=== PATIENT | male | born 1965 | race Caucasian/White ===

== ENCOUNTER 2020-10-10 16:48 | Emergency (ER) | payer MEDICAID, OTHER ==
--- NOTE | 2020-10-10 17:06 | EDM.PDOC ---
<Bebeto Tran - Last Filed: 10/10/20 17:05> ED HPI GENERAL MEDICAL PROBLEM - General Chief Complaint: General Stated Complaint: Epigastric pain Time Seen by Provider: 10/10/20 18:10 - Related Data Allergies Allergy/AdvReac Type Severity Reaction Status Date / Time No Known Allergies Allergy Verified 08/08/17 09:38 Home Meds: Home Meds Lisinopril 40 mg PO DAILY 08/05/17 [History] Verapamil HCl [Calan Sr] 240 mg PO DAILY 08/05/17 [History] #1 Interpretation EKG Date: 10/10/20 Time: 15:59 Rhythm: NSR Hague: LAD-Left Hague Deviation P-Wave: Present QRS: Normal ST-T: Normal QT: Normal Comparison: NA - No Prior EKG Departure - Departure Disposition: Home, Self-Care 01 Clinical Impression: Excessive flatus Abdominal pain Qualifiers: Abdominal location: generalized Qualified Code(s): R10.84 - Generalized abdominal pain - Discharge Information Instructions: Abdominal Pain, Adult, Abdominal Bloating Referrals: aJyesh Bautista Sr, MD [Primary Care Provider] - Forms: ED Department Discharge Care Plan Goals: I recommend taking one of the [id number] anti-gas medications like Maalox, simethicone-based Gas-X, Mandie, or Di-Gel to help break up the excessive colonic flatus. This is likely contributing to your discomfort. Your labs today were unremarkable for any worrisome findings including your CBC, comprehensive metabolic profile looking at your electrolytes, liver function, and kidney function, your troponin I looking at heart function and your C- reactive protein looking at inflammatory markers. Your EKG was unremarkable for any significant abnormalities except for your previous heart attack. Your chest x-ray did show a significant amount of colonic gas but no intrathoracic abnormalities with normal heart contour and normal-appearing lungs. Your blood pressure has remained elevated throughout your stay and I do recommend revisiting whether or not to restart your medications with your primary doctor Dr. Bautista. Please arrange to follow-up with him early next week to discuss this. Should you have recurrence of symptoms, please return to the ED for reevaluation. <Ayo Ritter - Last Filed: 10/10/20 19:54> ED HPI GENERAL MEDICAL PROBLEM - General Source of Information: Reports: Patient History Limitations: Reports: No Limitations - History of Present Illness INITIAL COMMENTS - FREE TEXT/NARRATIVE: Jean is a 55-year-old male presenting to the ED for evaluation of acute onset of epigastric and periumbilical pain. The patient has a history significant for hypertension, coronary artery disease status post angioplasty with a single stent placed in 2016 after having a "silent LA" and irritable bowel disease. Patient was in his usual state of health when he had acute onset of his epigastric and abdominal pain. He was concerned because of his previous experience in 2017 that had similar symptoms and ended up being a silent LA. The patient had been on antihypertensives until March of this year when they were discontinued because he was not showing any significant difference between being on and off the medications. He has been working on his stress reduction which appears to have lowered his blood pressure, however, today's presenting with quite hypertensive numbers with a blood pressure of 167/102. The patient reports that his pressure at home was 171/115. He says he is normally running about 135/80. He currently is running 153/106. He did experience some chest pain today and mild shortness of breath. He does seem to be a little high on the stress and anxiety scale. He reports that after discussing being on medications with his primary doctor, Jayesh Bautista which consisted of lisinopril 40 mg daily and verapamil CD 240 mg daily he has been off these medications since March 2020. Patient reports he monitors his blood pressure least 2-3 times a week. Currently he feels like he has epigastric and periumbilical gas pain. He says normally he takes a Zofran and it helps it go away, however, did not this time. He has not really been able to pass much gas. Abdominal Pain Score (Numeric/FACES): 4 ED ROS GENERAL - Review of Systems Review Of Systems: See Below Constitutional: Reports: No Symptoms HEENT: Reports: No Symptoms Respiratory: Reports: No Symptoms Cardiovascular: Reports: Chest Pain, Blood Pressure Problem Endocrine: Reports: No Symptoms GI/Abdominal: Reports: Abdominal Pain (Epigastric and periumbilical), Diarrhea (Mild diarrhea earlier today), Nausea (Mild nausea). Denies: Vomiting : Reports: No Symptoms Musculoskeletal: Reports: No Symptoms Skin: Reports: No Symptoms Neurological: Reports: No Symptoms Psychiatric: Reports: No Symptoms Hematologic/Lymphatic: Reports: No Symptoms ED EXAM, GENERAL - Physical Exam Exam: See Below Exam Limited By: No Limitations General Appearance: Alert, Anxious, Mild Distress Eye Exam: Bilateral Eye: EOMI, PERRL Throat/Mouth: Normal Oropharynx, Normal Voice, No Airway Compromise Head: Atraumatic, Normocephalic Neck: Normal Inspection, Supple. No: Carotid Bruit Respiratory/Chest: No Respiratory Distress, Lungs Clear, Normal Breath Sounds Cardiovascular: Normal Peripheral Pulses, Regular Rate, Rhythm, No Edema, No JVD, Systolic Murmur (Grade 2/6 systolic murmur heard at the apex of the heart) Peripheral Pulses: 2+: Radial (L), Radial (R), Popliteal (L), Popliteal (R) GI/Abdominal: Normal Bowel Sounds, Soft, Non-Tender, No Distention, Other (Tympany to percussion throughout the distribution of the colon). No: Guarding, Rigid, Rebound Extremities: Normal Inspection, Normal Range of Motion Neurological: Alert, Oriented, Normal Cognition, No Motor/Sensory Deficits Psychiatric: Normal Affect, Normal Mood Skin Exam: Warm, Dry Lymphatic: No Adenopathy Course - Vital Signs Last Recorded V/S: Last Vital Signs Temp 36.8 C 10/10/20 17:05 Pulse 79 10/10/20 17:05 Resp 18 10/10/20 17:05 BP 172/93 H 10/10/20 18:52 Pulse Ox - Orders/Labs/Meds Orders: Active Orders 24 hr Category Date Time Status EKG Documentation Completion [RC] ASDIRECTED Care 10/10/20 18:28 Active Chest 2V [CR] Stat Exams 10/10/20 18:16 Taken Sodium Chloride 0.9% [Saline Flush] Med 10/10/20 18:16 Active 10 ml FLUSH ASDIRECTED PRN Saline Lock Insert [OM.PC] Routine Oth 10/10/20 18:16 Ordered EKG 12 Lead [EK] Routine Ther 10/10/20 18:28 Ordered Medication Orders Sodium Chloride (Sodium Chloride 0.9% 10 Ml Syringe) 10 ml FLUSH ASDIRECTED PRN PRN Reason: Keep Vein Open Last Admin: 10/10/20 18:51 Dose: 10 ml Documented by: HOWATER Labs: Laboratory Tests 10/10/20 10/10/20 10/10/20 Range/Units 18:42 18:42 18:42 WBC 9.2 (4.5-11.0) K/uL RBC 4.75 (4.30-5.90) M/uL Hgb 14.2 (12.0-15.0) g/dL Hct 43.3 (40.0-54.0) % MCV 91 (80-98) fL MCH 30 (27-31) pg MCHC 33 (32-36) % Plt Count 343 (150-400) K/uL Neut % (Auto) 80.9 H (36-66) % Lymph % (Auto) 7.6 L (24-44) % [place] % (Auto) 10.5 H (2-6) % Eos % (Auto) 0.7 L (2-4) % Baso % (Auto) 0.3 (0-1) % PT 10.2 (9.5-12.0) sec INR 0.93 (0.80-1.20) APTT 25.7 L (27.0-36.0) sec Sodium 141 (140-148) mmol/L Potassium 4.0 (3.6-5.2) mmol/L Chloride 102 (100-108) mmol/L Carbon Dioxide 26 (21-32) mmol/L Anion Gap 13.5 (5.0-14.0) mmol/L BUN 6 L (7-18) mg/dL Creatinine 1.1 (0.8-1.3) mg/dL Est Cr Clr Drug Dosing 72.61 mL/min Estimated GFR (MDRD) > 60 (>60) Glucose 117 H (74-106) mg/dL Calcium 8.8 (8.5-10.1) mg/dL Total Bilirubin 0.5 (0.2-1.0) mg/dL AST 17 (15-37) U/L ALT 35 D (12-78) U/L Alkaline Phosphatase 90 (46-116) U/L Troponin I < 0.017 (0.000-0.056) ng/mL C-Reactive Protein 0.26 (0.0-0.3) mg/dL Total Protein 6.8 (6.4-8.2) g/dL Albumin 3.8 (3.4-5.0) g/dL Globulin 3.0 (2.3-3.5) g/dL Albumin/Globulin Ratio 1.3 (1.2-2.2) Meds: Medications Generic Name Dose Route Start Last Admin Trade Name Kasia PRN Reason Stop Dose Admin Sodium Chloride 10 ml 10/10/20 18:16 10/10/20 18:51 Sodium Chloride 0.9% 10 Ml Syringe FLUSH 10 ml ASDIRECTED PRN Administration Keep Vein Open - Re-Assessments/Exams Free Text/Narrative Re-Assessment/Exam: 10/10/20 19:49 I reviewed the patient's labs showing a normal CBC, comprehensive metabolic panel, troponin I, and CRP. His chest x-ray is unremarkable, however, he does have a fair amount of gas throughout the transverse colon consistent with my physical exam showing a large amount of gas throughout the majority of the colon with tympany to percussion. This is likely the cause for his abdominal discomfort. He is reluctant to use medications, however, I do think that Maalox or one of the simethicone-based medications may help him with this. Certainly there is no evidence for a cardiac origin for his symptoms today. My bigger concern is he is quite hypertensive and remained so while in the ED. He is reluctant to start medications, however, I do think that he needs to revisit this with his primary care provider, Dr. Bautista and recommend that he makes an appointment in follow-up next week. You think that there is a component of this that is anxiety driven causing catecholamine surge. At this time, I believe the patient is suitable for discharge in satisfactory condition. Indications return to the ED were discussed. All questions were answered prior to discharge. Departure - Departure Time of Disposition: 19:51 Sepsis Event Note (ED) - Focused Exam Vital Signs: Vital Signs Temp Pulse Resp BP 10/10/20 18:52 172/93 H 10/10/20 18:47 189/108 H 10/10/20 18:18 160/101 H 10/10/20 17:05 36.8 C 79 18 167/102 H - Problem List & Annotations (1) Abdominal pain SNOMED Code(s): 83001777 Code(s): R10.9 - UNSPECIFIED ABDOMINAL PAIN Status: Acute Priority: High Current Visit: Yes Qualifiers: Abdominal location: generalized Qualified Code(s): R10.84 - Generalized abdominal pain (2) Excessive flatus SNOMED Code(s): 35262294 Code(s): R14.3 - FLATULENCE Status: Acute Priority: High Current Visit: Yes - My Orders Last 24 Hours: My Active Orders 10/10/20 18:16 Chest 2V [CR] Stat Sodium Chloride 0.9% [Saline Flush] 10 ml FLUSH ASDIRECTED PRN Saline Lock Insert [OM.PC] Routine 10/10/20 18:28 EKG Documentation Completion [RC] ASDIRECTED EKG 12 Lead [EK] Routine - Assessment/Plan Last 24 Hours: My Active Orders 10/10/20 18:16 Chest 2V [CR] Stat Sodium Chloride 0.9% [Saline Flush] 10 ml FLUSH ASDIRECTED PRN Saline Lock Insert [OM.PC] Routine 10/10/20 18:28 EKG Documentation Completion [RC] ASDIRECTED EKG 12 Lead [EK] Routine
[2020-10-10] MEDS ORDERED: Sodium Chloride 0.9% 10 ML Syringe FLUSH PRN (18:16)
--- NOTE | 2020-10-13 13:52 | CR ---
CHEST: 2 view CLINICAL HISTORY:Epigastric pain COMPARISON:2013 FINDINGS: The heart size, pulmonary vascularity and hilar structures are normal. No infiltrate effusion or pneumothorax is seen. IMPRESSION: No acute cardiopulmonary process.
== END 2020-10-10 20:20 | disposition home or self-care (01) ==
LOC: JP.ED 16:48
DX: R10.84 Generalized abdominal pain (principal); R14.3 Flatulence; Z79.899 Other long term (current) drug therapy
CPT/HCPCS: 36415; 71046; 71046-26; 80053; 84484; 85025; 85610; 85730; 86140; 93005; 99283; 99284-25